=== PATIENT | male | born 1995 | race Caucasian/White ===

== ENCOUNTER 2017-01-04 20:26 | Emergency (ER) | payer MEDICAID ==
[2017-01-04 20:36] VITALS: TEMP 98.1
--- NOTE | 2017-01-04 21:19 | CPEKG ---
Heart Rate: 68 RR Interval: 882 P-R Interval: 152 QRSD Interval: 94 QT Interval: 388 QTC Interval: 413 P [place]: 56 QRS [place]: 85 T Wave [place]: 53 EKG Severity - NORMAL ECG - EKG Impression: SINUS RHYTHM Electronically Signed By: Neftaly Short 06-Jan-2017 11:55:21
--- NOTE | 2017-01-04 21:32 | EDPHY ---
H & P Stated Complaint: syncopal fall 18:30 Time Seen by Provider: 01/04/17 21:22 HPI/ROS: CHIEF COMPLAINT: Syncope HISTORY OF PRESENT ILLNESS: This is a 21-year-old male presenting to the emergency department after passing out hitting his head. Patient states he has a history of syncopal episodes which started 6 years ago after a 20 foot fall and concussion. Patient states this episode was a little bit different he was not feeling good after eating dinner, went to stand up and then passed out hitting his head on carpet. Brother stated it seem like he did have a seizure but was not quite sure, syncope episode lasted less than 30 seconds per brother. Patient states his last episode of syncope was 1-2 years ago seen in [place], unknown etiology. Patient states he still feels a little foggy and dizzy at this time, no nausea vomiting shortness of breath or chest pain REVIEW OF SYSTEMS: Constitutional: No fever, no chills. Malaise Eyes: No visual changes. ENT: No sore throat Respiratory: No cough, no shortness of breath. Cardiac: No chest pain. Gastrointestinal: Genitourinary: No hematuria. Musculoskeletal: No back pain. Skin: No rashes. Neurological: No headache. Source: Patient, Family - Personal History Current Tetanus/Diphtheria Vaccine: Yes - Medical/Surgical History Hx Asthma: Yes Hx Chronic Respiratory Disease: No Hx Diabetes: No Hx Cardiac Disease: No Hx Renal Disease: No Hx Cirrhosis: No Hx Alcoholism: No Hx HIV/AIDS: No Hx Splenectomy or Spleen Trauma: No Other PMH: PSHx: urethral approx 2010. PMHx: frequent syncope, exercise induced asthma - Social History Smoking Status: Current every day smoker - Physical Exam Exam: General Appearance: Alert, no distress. Eyes: Pupils equal and round no pallor or injection. ENT, Mouth: Mucous membranes moist. Respiratory: There are no retractions, lungs are clear to auscultation. Cardiovascular: Regular rate and rhythm. Gastrointestinal: Abdomen is soft and nontender, no masses, bowel sounds normal. Neurological: No focal deficits. Ambulatory to room without difficulty Skin: Warm and dry, no rashes. Musculoskeletal: Cervical spine vertebral tenderness on palpation C-collar placed. Occipital tenderness no hematoma noted Extremities: symmetrical, full range of motion. Psychiatric: Patient is oriented X 3, there is no agitation. Acting appropriate Constitutional: Initial Vital Signs Temperature (C) 36.7 C 01/04/17 20:32 Heart Rate 75 01/04/17 20:32 Respiratory Rate 14 01/04/17 20:32 Blood Pressure 139/67 H 01/04/17 20:32 O2 Sat (%) 95 01/04/17 20:32 O2 Delivery Mode Room Air Allergies/Adverse Reactions: No Known Allergies Allergy (Unverified 01/04/17 20:32) Home Medications: Medication Instructions Recorded NK [No Known Home Meds] 01/04/17 Medical Decision Making - Diagnostics Imaging Results: Imaging Impressions Cervical Spine CT 01/04/17 21:32 Impression: 1. No significant intracranial abnormality seen. 2. Normal CT cervical spine. Findings discussed with Dalia Roche NP at 22:18 hour, 01/04/2017. Head CT 01/04/17 21:32 Impression: 1. No significant intracranial abnormality seen. 2. Normal CT cervical spine. Findings discussed with Dalia Roche NP at 22:18 hour, 01/04/2017. Imaging: I viewed and interpreted images myself (spoke with Radiologist) ED Course/Re-evaluation: Discussed the plan of care: CT head, CT cervical spine, , CBC Chem 7 2230: Discussed negative CT findings, negative lab results, EKG no acute findings. C-collar removed 2300: Discussed discharge instructions with patient. Since you live in [facility] and has been seen through [facility] for primary care. Follow up with Neurology and Cardiology for further evaluation of her syncopal episodes Differential Diagnosis: Differential diagnosis considered but not limited to SAH, seizure and orthostatic hypotension - Data Points Laboratory Results: Laboratory Results 01/04/17 21:48 01/04/17 21:48 01/04/17 01/04/17 21:48 21:48 WBC 4.95 10^3/uL 10^3/uL (3.80-9.50) RBC 5.19 10^6/uL 10^6/uL (4.40-6.38) Hgb 15.2 g/dL g/dL (13.7-17.5) Hct 43.1 % % (40.0-51.0) MCV 83.0 fL fL (81.5-99.8) MCH 29.3 pg pg (27.9-34.1) MCHC 35.3 g/dL g/dL (32.4-36.7) RDW 11.9 % % (11.5-15.2) Plt Count 218 10^3/uL 10^3/uL (150-400) MPV 10.4 fL fL (8.7-11.7) Neut % (Auto) 55.0 % % (39.3-74.2) Lymph % (Auto) 30.9 % % (15.0-45.0) [place] % (Auto) 9.5 % % (4.5-13.0) Eos % (Auto) 3.6 % % (0.6-7.6) Baso % (Auto) 0.8 % % (0.3-1.7) Nucleat RBC Rel Count 0.0 % % (0.0-0.2) Absolute Neuts (auto) 2.72 10^3/uL 10^3/uL (1.70-6.50) Absolute Lymphs (auto) 1.53 10^3/uL 10^3/uL (1.00-3.00) Absolute Monos (auto) 0.47 10^3/uL 10^3/uL (0.30-0.80) Absolute Eos (auto) 0.18 10^3/uL 10^3/uL (0.03-0.40) Absolute Basos (auto) 0.04 10^3/uL 10^3/uL (0.02-0.10) Absolute Nucleated RBC 0.00 10^3/uL 10^3/uL (0-0.01) Immature Gran % 0.2 % % (0.0-1.1) Immature Gran # 0.01 10^3/uL 10^3/uL (0.00-0.10) Sodium 138 mEq/L mEq/L (134-144) Potassium 4.7 mEq/L mEq/L (3.5-5.2) Chloride 105 mEq/L mEq/L (97-110) Carbon Dioxide 24 mEq/l mEq/l (22-31) Anion Gap 9 mEq/L mEq/L (8-16) BUN 20 mg/dL mg/dL (7-23) Creatinine 0.9 mg/dL mg/dL (0.7-1.3) Estimated GFR > 60 Glucose 84 mg/dL mg/dL (70-100) Calcium 9.9 mg/dL mg/dL (8.5-10.4) Medications Given: Discontinued Medications Acetaminophen (Tylenol) 1,000 mg PO EDNOW ONE Stop: 01/04/17 23:24 Last Admin: 01/04/17 23:27 Dose: 1,000 mg Departure - Departure Disposition: Home, Routine, Self-Care Clinical Impression: Syncope Qualifiers: Syncope type: unspecified Qualified Code(s): R55 - Syncope and collapse Condition: Good Instructions: Syncope (ED), Lightheadedness (ED) Additional Instructions: Discussed discharge instructions 1. As we discussed I would recommend following up with [facility] since you have been seen with the [facility] 2. Follow up with Neurology and Cardiology for further evaluation for the syncopal episodes your having 3. If at any point time you feel your symptoms have worsened chest pain shortness of breath any seizure activity return to the emergency department 4. Your CT scan of your head and cervical spine are negative for any acute findings Referrals: NONE *PRIMARY CARE P,. [Primary Care Provider] - As per Instructions [facility],. [Clinic] - As per Instructions
[2017-01-04 22:03] LABS: % IMMATURE GRANULYOCYTES 0.2 % (0.0-1.1); ABSOLUTE IMMATURE GRANULOCYTES 0.01 10^3/uL (0.00-0.10); ADD DIFF? NO; ADD MORPH? NO; ADD SCAN? NO; ATYPICAL LYMPHOCYTE FLAG 10 (0-99); FRAGMENT RBC FLAG 0 (0-99); HEMATOCRIT 43.1 % (40.0-51.0); HEMOGLOBIN 15.2 g/dL (13.7-17.5); LEFT SHIFT FLG 0 (0-99); LIPEMIA HEMOLYSIS FLAG 90 (0-99); MEAN CELL HEMOGLOBIN 29.3 pg (27.9-34.1); MEAN CELL HEMOGLOBIN CONCENTR. 35.3 g/dL (32.4-36.7); MEAN PLATELET VOLUME 10.4 fL (8.7-11.7); PLATELET CLUMPS FLAG 10 (0-99); PLATELET COUNT 218 10^3/uL (150-400); RED BLOOD CELL COUNT 5.19 10^6/uL (4.40-6.38); RED CELL DISTRIBUTION WIDTH 11.9 % (11.5-15.2)
[2017-01-04 22:19] LABS: ANION GAP 9 mEq/L (8-16); CALCIUM 9.9 mg/dL (8.5-10.4); CARBON DIOXIDE 24 mEq/l (22-31); CHLORIDE 105 mEq/L (97-110); CREATININE 0.9 mg/dL (0.7-1.3); GLOMERULAR FILTRATION RATE > 60; GLUCOSE 84 mg/dL (70-100); POTASSIUM 4.7 mEq/L (3.5-5.2); SODIUM 138 mEq/L (134-144)
[2017-01-04 22:57] VITALS: RESP 16
[2017-01-04] MEDS ORDERED: ACETAMINOPHEN 500 MG TAB PO ONE (23:23)
[2017-01-04 23:29] VITALS: BP 120/69; PULSE 77; O2SAT 96
== END 2017-01-04 23:27 | disposition home or self-care (01) ==
DX: R55 Syncope and collapse (principal); J45.909 Unspecified asthma, uncomplicated; F17.200 Nicotine dependence, unspecified, uncomplicated
CPT/HCPCS: L0120

== ENCOUNTER → 2017-01-20 | Outpatient (CLI) | payer MEDICAID ==
--- NOTE | 2017-01-20 18:56 | CPEEG ---
[f rep st] ELECTROENCEPHALOGRAM DATE OF STUDY: 01/20/2017 INTERPRETATION: Normal EEG during wakefulness and sleep. There were no potentially epileptogenic a bnormalities present during the recording. REPORT: This EEG contains 10 Hz alpha activity to the posterior head regions. The background activ ity was normal and symmetric. There was no abnormal activation at rest, during photic stimulation, or hyperventilation. The patient became drowsy and fell asleep during the study. There was no abno rmal activation during drowsiness, sleep, or during times of arousal. /[id number]/MODL
== END ==
LOC: FCPNEURO 12:56
PROVIDERS: ATTEND Internal Medicine
DX: R55 Syncope and collapse (principal)

== ENCOUNTER → 2017-01-29 | Outpatient (CLI) | payer MEDICAID | LOC: FIMAGING 09:20 | PROVIDERS: ATTEND Internal Medicine | DX: R55 Syncope and collapse (principal) ==

== ENCOUNTER 2017-02-18 09:07 | Day surgery (SDC) | payer MEDICAID ==
[2017-02-18] MEDS ORDERED: LIDOCAINE 1% *Not for Epidural 20 ML MDV NB ONE (09:30)
[2017-02-18] MEDS ORDERED: LIDOCAINE 1% 300 MG/30 ML SDV ONE (10:08)
--- NOTE | 2017-02-18 13:14 | EPPROC ---
Electrophysiology Procedure Note: Procedure: LINQ implant Indication: Syncope of unknown etiology Procedure: parts prepared and draped. LA given. Incision placed. LINQ implanted using usual technique. Dry sterile dressing placed. Conclusion: Successful LINQ implant
== END 2017-02-18 10:54 | disposition home or self-care (01) ==
LOC: FCATH 09:07
PROVIDERS: ATTEND Internal Medicine Cardiovascular Disease
PROC: 0JH60PZ Insertion of Cardiac Rhythm Related Device into Chest Subcutaneous Tissue and Fascia, Open Approach (ICD-10-PCS; principal; 2017-02-18)
DX: R55 Syncope and collapse (principal)
CPT/HCPCS: C1764

== ENCOUNTER 2018-03-14 23:02 | Inpatient (IN) | payer MEDICAID ==
[2018-03-14] MEDS ORDERED: NS 1,000 ML IV SCH (23:45)
[2018-03-14] MEDS ORDERED: ONDANSETRON 4 MG/2 ML VIAL IVP PRN (23:53)
[2018-03-14] MEDS ORDERED: ACETAMINOPHEN 325 MG TAB PO PRN (23:53)
--- NOTE | 2018-03-15 01:29 | PDGENHP ---
History and Physical - Chief Complaint Syncope - History of Present Illness Source-patient provides history appears reliable. Patient's mother who was present for his syncopal episode on Wednesday was also present and supplement details and family history details. EMR was reviewed and case discussed with accepting hospitalist provider. HPI - this is a pleasant 22-year-old gentleman with a past medical history significant for intermittent episodes of syncope. He is having been ongoing off and on for the past several years. Patient is followed closely by Dr. Rei Ring. Patient underwent LINQ recorder placement in 02/2017. It was reported that patient has had is some documentation of episodes of SVT, bradycardia and most recently this past week and had a 12 sec pause. These episodes were both associated with syncopal episodes. Patient had been camping over the weekend he and he was standing in line for dinner with his family when he started to feel lightheaded and blacked out. Patient's mother reports that he turned sue and pale and fell to the ground. He also had loss of urinary control. There was no reported tonic clonic activity. Patient's mother reports that this past episode seemed that he had a little bit of prolonged recovery phase as he was still quite fatigued and his overall color took a while to return to normal. Patient otherwise denies any chest pain, palpitations, shortness of breath. No recent illnesses. He denies any PND, orthopnea or lower extremity edema. When patient returned on to town from camping he uploaded his r recorder and was called back by Cardiology noting a significant pause and recommended patient go emergently to the ER. In the emergency department patient was noted to have had a 6 sec pause but no report of syncopal episode. Currently on the PCU floor patient reports that he is feeling well. Denies any lightheadedness, chest pain, shortness of breath. History Information - Allergies/Home Medication List Allergies/Adverse Reactions: No Known Allergies Allergy (Unverified 01/04/17 20:32) Home Medications: NK [No Known Home Meds] 01/04/17 [Last Taken Unknown] I have personally reviewed and updated: family history, medical history, social history, surgical history - Past Medical History Additional medical history: Syncope, exercise-induced asthma, anxiety, depression, history of ureteral stricture status post repair, history negative stress test. PTSD. Two thousand eleven patient with a fall off of [facility] approximately 45 ft with concussion and liver lac. - Surgical History Additional surgical history: Loop recorder, ureteral stricture repair - Social History Smoking Status: Current every day smoker Tobacco Use: Cigarettes (Patient smokes 1 pack per day) Alcohol Use: Rarely Drug Use: Marijuana (Daily use) Additional social history: Patient works in construction. Cor status-full. Review of Systems Review of Systems: ROS: 10pt was reviewed & negative except for what was stated in HPI & below Physical Exam Physical Exam: Selected Entries 03/14/18 23:17 Heart Rate 62 Respiratory 14 Rate O2 Sat (%) 96 Temperature (C) 36.3 C Blood Pressure 130/58 H Mean Arterial 82 Pressure (MAP) Activity During At Rest Vital Signs O2 Delivery Room Air Mode Blood Pressure Left Source Upper Arm Temperature Oral Source Temp Pulse Resp BP Pulse Ox 36.3 C 62 14 130/58 H 96 03/14/18 23:17 03/14/18 23:17 03/14/18 23:17 03/14/18 23:17 03/14/18 23:17 Constitutional: no apparent distress, appears nourished, other (NAD. Pleasant adult young male resting quietly in bed. Mother at bedside.) Eyes: PERRL, anicteric sclera, EOMI, No scleral injection Ears, Nose, Mouth, Throat: moist mucous membranes, other (No nasal discharge.), No poor dentition Cardiovascular: regular rate and rhythym, no murmur, rub, or gallop, pulses symmetric bilaterally, No edema Peripheral Pulses: 2+: dorsalis-pedis (R), dorsalis-pedis (L) Respiratory: no respiratory distress, no rales or rhonchi, clear to auscultation , No expiratory wheeze, No inspiratory crackles, No respiratory distress Gastrointestinal: normoactive bowel sounds, soft, non-tender abdomen, no palpable masses, No distension Genitourinary: no bladder tenderness, No stubbs in urethra Skin: warm, normal color, no rashes or abrasions Musculoskeletal: full muscle strength, other (Patient moves all extremities. Sits up independently.), No generalized weakness Neurologic: AAOx3, sensation intact bilaterally, other (Nonfocal exam.), No facial droop Psychiatric: interacting appropriately, not anxious, not encephalopathic, thought process linear, No poor insight, No poor judgement, No poor memory Lab Data & Imaging Review 03/14/2018 Laboratory studies from [facility] WBC 6.1, H&H 15.3 and 44, platelet 207, MCV of 84 Sodium 143, potassium 4.2, chloride 108, CO2 23, BUN 16, creatinine 0.8, glucose 87 Troponin negative EKG reviewed myself from [facility] 03/14/2018- NSR in the 60s. There is less than [address] elevation in inferior leads likely report changes. Right axis deviation present. No other acute ST changes. QTC of 394. Telemetry strips reviewed showing occasional P wave inversion in various leads as well as occasional superimposed P-waves within the T-wave. Occasional T- wave inversion. With patient being asymptomatic. 03/14/2018 Chest x-ray report reviewed. Negative for any acute findings. Unable to upload image on available equipment for review. Disc is attached to patient's chart. Visualized and Interpreted EKG results: Yes Assessment & Plan Assessment: Assessment plan 22-year-old gentleman with history recurrent episodes of syncope status post loop recorder now presents as direct admission for noted episodes of bradycardia and pauses. 1. Syncope - patient has had several episodes of pauses which are generally associated with his episodes of syncope. Cardiology was consulted from the emergency department in [place] with recommendations for patient to be admitted for further evaluation and consideration of a pacer. Patient is followed closely by Dr. Rei Ring and they were called prior to patient's transfer. Anticipate they will evaluate the patient in the morning and so will make him NPO. Patient currently normal sinus rhythm on telemetry. chronic medical issues Anxiety depression - patient is not currently on any medications. Mood affect appears appropriate. History concussion History of PTSD History exercise-induced asthma - albuterol will be made available p.r.n.. Tobacco abuse - cessation will be counseled before discharge. Nicotine patch p.r.n. For withdrawal symptoms. FEN - patient will be made NPO pending Cardiology of assessment in the morning. Electrolyte monitoring replacement if needed. PPX-SCDs. Holding anticoagulation pending Cardiology evaluation recommendations. Low risk for DVT. Cor status-full Disposition-patient has been admitted inpatient status on PCU floor given significance of correlation with patient's bradycardia and pausing. Anticipate greater than 2 midnight stay pending further Cardiology recommendations.
[2018-03-15] MEDS ORDERED: ALBUTEROL 3 ML DEYVIAL IH PRN ×2 (01:45→15:45)
[2018-03-15 04:40] LABS: PLATELET COUNT 188 10^3/uL (150-400)
--- NOTE | 2018-03-15 09:08 | PDMN ---
Medical Necessity Medical necessity: Pt meets IP criteria per MD & MCG [id number]; est los >2 mn for eval/tx of recurrent episodes of syncope s/p loop recorder w/episodes of bradycardia & pauses; requiring cardiac monitoring & Cardiology consult w/ possible pacer placement; per H&P & order 03/14/18
--- NOTE | 2018-03-15 13:20 | GCON ---
[f rep st] CONSULTATION CARDIOLOGY CONSULTATION DATE OF CONSULTATION: 03/15/2018 REASON FOR CONSULTATION: Syncope. HISTORY OF PRESENT ILLNESS: The patient is a pleasant 22-year-old gentleman who is known to [facility], who is followed closely by Dr. Rei Ring for a known history of syncope for approximately t he last 5-6 years. He presents to [facility] after a syncopal episode that occurred over the weekend. He does have an implantable loop recorder in place that was inserted in January of 2017 in the setting of ongoing workup for syncope. This past weekend, he states he was in his usual state of health. He was out camping with his girlfr iend and parents. He states he was standing in line for some food when he had a brief prodrome of ap proximately 1 minute of what he described as "closing in of his vision," lightheadedness that ultimat tom resulted in a loss of consciousness. This was witnessed by his father who states he was unconsci ous on the ground for approximately 15 seconds. He was incontinent to urine. He appeared pale and d iaphoretic. He states that when he awoke, that he was able to sit up in a chair and within 20 minute s felt back to baseline. When he returned home, he was able to do a remote download of his loop mukund rder, which demonstrated a 12-13 second pause that was preceded by bradycardia. He was instructed to present to a local hospital for further evaluation. He was seen in [place] and ultimately came to [facility] for further evaluation since this is where all of his workup had been done to date. Regarding his history of syncope, he states he has had syncopal events for approximately the last 5-6 years. These events occur several times a year. To me, he described these events as occurring prim arily without prodrome. He describes feeling well followed by a sudden loss of consciousness and the n waking up and feeling back to baseline within minutes. In reviewing his notes from Dr. Harmony del castillo last year as well as notes from Dr. Rei Ring, he frequently describes prodromal symptoms that a re more suggestive of a vasovagal mediated syncope. He has undergone extensive workup including a normal exercise treadmill stress test in January of 2017 wi th Jack Treadmill Score of 12, placing him at low cardiac risk. He did undergo complete 2D echocardiogram in January 2017, demonstrating normal left ventricular size and function with no evidence of LVH. No significant valvular abnormalities. Currently, at the time of my exam, he is resting comfortably without complaint. Telemetry demonstrat es sinus rhythm. There is an occasionally nonconducted premature atrial contraction with no signific ant pauses. PAST MEDICAL HISTORY: Notable for depression and exercise-induced asthma. MEDICATIONS: On admission are albuterol inhaler 1-2 puffs p.r.n. SOCIAL HISTORY: He is single. He does have a girlfriend. He has been a 1 pack-a-day smoker for the last 3 years. 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 Occasional alcohol. FAMILY HISTORY: No family history of premature coronary artery disease. No family history of arrhyt hmias and no known family history of pacemakers. PAST MEDICAL HISTORY: Notable for traumatic liver laceration after a fall from approximately 20 feet . EXAMINATION: VITALS: Blood pressure of 115/79, heart rate of 68, oxygen saturation 97% on room air, temperature 37.1. GENERAL: He is awake, alert, oriented, appropriate. No apparent distress. NECK : There is no evidence of JVP or carotid bruits. LUNGS: Clear to auscultation bilaterally. CARDIA C: S1, S2. Regular rate and rhythm. No murmurs, rubs, or gallops. PMI is not displaced. ABDOMEN: Soft, nontender, nondistended. There is no pulsatile mass or abdominal bruit. EXTREMITIES: He tomlinson s no evidence of cyanosis, clubbing or edema. DATA: Telemetry demonstrates sinus rhythm with an occasional nonconducted premature atrial contracti on. LABORATORY DATA: White blood cell count 5.37, hemoglobin of 13.9, hematocrit of 41.1, platelets 188. Sodium 139, potassium 4.4, chloride 110, bicarb 21, BUN 15, creatinine 0.7, glucose 80. IMPRESSION: 1. Syncope. 2. Sinus arrest with a 12-13 second pause detected on [employer] implantable loop recorder associated with syncope. IMPRESSION: The patient was a pleasant 22-year-old young man with known history of syncope over the last 5-6 years with episodes that are frequently non prodromal per his report today. His event over the weekend did have 1 minute prodrome. In reviewing records, he does have episodes that he describe s to both Dr. Ring and Dr. Antunez of neurology of prodrome suggestive of vasovagal syncope. In the setting of syncope with prolonged pause of 12-13 seconds and history of non prodromal events, I think that consideration and recommendation for pacemaker is warranted. Would recommend an atrial and ventricular lead. I have discussed risks and benefits for the procedure with the patient. I have recommended he be seen by Dr. Short for pacemaker implantation. PLAN: 1. Dual chamber pacemaker implantation. 2. Risks and benefits discussed. 3. Dr. Short will discuss details of pacemaker implantation with the patient as well. /[id number]/MODL
[2018-03-15] MEDS ORDERED: ceFAZolin 2 GM/DEXTROSE 100 ML IV ONE (13:23)
[2018-03-15] MEDS ORDERED: BACITRACIN IRRIGATION/NS 50,000 UNITS/1,000 ML BTL IRR ONE (13:23)
[2018-03-15] MEDS: NICOTINE 21 MG/24 HR PATCH TD PRN (13:33)
--- NOTE | 2018-03-15 14:05 | ASMTCMCOM ---
CM Note CM Note Notes: Chart reviewed. Patient has history of heart rhythm disturbances. Admitted via ED with symptomatic syncope associated with bradycardia. He will have a PPM placed this afternoon. No anticipated needs at this time. CM available should needs arise. Plan:Likely home with no needs. Date Signed: 03/15/2018 02:05 PM Electronically Signed By:Akosua Payton RN
--- NOTE | 2018-03-15 14:23 | HOSPPROG ---
Hospitalist Progress Note Assessment/Plan: #Syncope: due to sinus arrest with 12-sec pause. Echo [address] Staples evaluated and plan for pace maker placement today #Exercise-induced asthma: albuterol #Tobacco abuse: nicotine patch #anxiety/depression: not on meds #Diet: NPO #DVT ppx: low-risk, ambulatory Disp: pacer placement today Subjective: no dizziness this morning Objective: Vital Signs Temp Pulse Resp BP Pulse Ox 37.1 C 62 12 135/51 H 95 03/15/18 12:00 03/15/18 12:00 03/15/18 12:00 03/15/18 12:00 03/15/18 12:00 Laboratory Results 03/15/18 03:58 03/15/18 03:58 03/14/18 03/15/18 03/16/18 05:59 05:59 05:59 Intake Total 100 Balance 100 - Time Spent With Patient Time Spent with Patient: greater than 35 minutes Time Spent with Patient: Greater than 35 minutes spent on this patients care, greater than 50% of time spent counseling, educating, and coordinating care regarding the above mentioned plan. - Physical Exam Constitutional: no apparent distress Eyes: PERRL Ears, Nose, Mouth, Throat: moist mucous membranes Cardiovascular: bradycardia Respiratory: no respiratory distress Gastrointestinal: normoactive bowel sounds Genitourinary: no bladder fullness Skin: warm Musculoskeletal: full muscle strength Neurologic: AAOx3, CN II-XII Intact Psychiatric: interacting appropriately ICD10 Worksheet Patient Problems: Problems Problem Status Onset Sinus arrest Acute - ICD10 Problem Qualifiers (1) Sinus arrest
[2018-03-15 15:08] LABS: INR 0.93 (0.83-1.16); PROTIME(PATIENT) 12.7 SEC (12.0-15.0)
--- NOTE | 2018-03-15 15:10 | PDANEPAE ---
ANE History of Present Illness here for PM for sinus pause ANE Past Medical History - Cardiovascular History Hx Hypertension: No Hx Arrhythmias: Yes Hx Chest Pain: No Hx Coronary Artery / Peripheral Vascular Disease: No Hx CHF / Valvular Disease: No Hx Palpitations: No - Pulmonary History Hx COPD: No Hx Asthma/Reactive Airway Disease: Yes Hx Recent Upper Respiratory Infection: No Hx Oxygen in Use at Home: No Hx Sleep Apnea: No - Endocrine History Hx Diabetes: No Hypothyroid: No Hyperthyroid: No Obesity: no - Renal History Hx Renal Disorders: No - Liver History Hx Hepatic Disorders: No - Neurological & Psychiatric Hx Hx Neurological and Psychiatric Disorders: No - Chronic Pain History Chronic Pain: Yes (Lower back pain) ANE Review of Systems Review of systems is: negative Review of Systems: - Exercise capacity Exercise capacity: >=4 METS ANE Patient History - Allergies Allergies/Adverse Reactions: No Known Allergies Allergy (Unverified 01/04/17 20:32) - Home Medications Home Medications: Albuterol [Proventil Inhaler HFA (*)] 1 - 2 puffs IH DAILY PRN 03/15/18 [Last Taken Unknown] - NPO status NPO Status: no food or drink >8 hours - Anes Hx Anes Hx: no prior problems - Smoking Hx Smoking Status: Current every day smoker - Alcohol Use Alcohol Use: Rarely ANE Labs/Vital Signs - Labs Result Diagrams: 03/15/18 03:58 03/15/18 03:58 - Vital Signs Blood Pressure: 135/51 Heart Rate: 62 Respiratory Rate: 12 O2 Sat (%): 95 Height: 180.34 cm Weight: 72.348 kg ANE Physical Exam - Airway Neck exam: FROM Mallampati Score: Class 1 Mouth exam: normal dental/mouth exam - Pulmonary Pulmonary: no respiratory distress - Cardiovascular Cardiovascular: regular rate and rhythym - ASA Status ASA Status: II ANE Anesthesia Plan Anesthesia Plan: GA with mask
[2018-03-15] MEDS ORDERED: LIDOCAINE 1% 300 MG/30 ML SDV ONE (15:22)
[2018-03-15] MEDS ORDERED: BUPIVACAINE 0.75% 10 ML SDV ONE (15:23)
[2018-03-15] MEDS ORDERED: IOPAMIDOL (ISOVUE-300) 100 ML BTL ONE (15:36)
--- NOTE | 2018-03-15 15:44 | PDGENHP ---
History & Physical Chief Complaint: Syncope, pause of 12 s Relevant Physical Exam: s1s2 rrr. cta. ao3 Cardiorespiratory Assessment: For permanent pacemaker
[2018-03-15] MEDS ORDERED: DEXAMETHASONE 4 MG/ML VIAL IVP PRN (15:45)
[2018-03-15] MEDS ORDERED: NALOXONE HCL 0.4 MG/ML INJ IVP PRN (15:45)
[2018-03-15] MEDS ORDERED: fentaNYL 100 MCG/2 ML INJ IVP PRN (15:45)
[2018-03-15] MEDS ORDERED: ONDANSETRON 4 MG/2 ML VIAL IVP PRN (15:45)
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
[2018-03-15] MEDS ORDERED: fentaNYL 100 MCG/2 ML INJ ONE (15:48)
[2018-03-15] MEDS ORDERED: MIDAZOLAM 2 MG/2 ML VIAL ONE (15:49)
[2018-03-15] MEDS ORDERED: PROPOFOL/EMULSION 500 MG/50 ML BOTTLE IV ONE ×3 (15:50→17:31)
[2018-03-15] MEDS ORDERED: PROPOFOL 200 MG/20 ML VIAL ONE ×3 (16:46→17:19)
--- NOTE | 2018-03-15 18:44 | CPEKG ---
Heart Rate: 64 RR Interval: 938 P-R Interval: 148 QRSD Interval: 88 QT Interval: 384 QTC Interval: 396 P Dryden: -9 QRS [place]den: 95 T Wave [place]: 55 EKG Severity - OTHERWISE NORMAL ECG - EKG Impression: SINUS RHYTHM EKG Impression: BORDERLINE RIGHT AXIS DEVIATION EKG Impression: ST ELEV, PROBABLE NORMAL EARLY REPOL PATTERN Electronically Signed By: Steven Brady 17-Mar-2018 16:17:28
[2018-03-15] MEDS ORDERED: HYDROCODONE/APAP 10/325 TAB PO PRN (22:45)
[2018-03-15] MEDS: HYDROCODONE/APAP 5/325 TAB PO PRN (23:11)
[2018-03-16] MEDS: HYDROCODONE/APAP 5/325 TAB PO PRN ×3 (00:13→13:25)
[2018-03-16 04:14] LABS: PLATELET COUNT 200 10^3/uL (150-400)
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
--- NOTE | 2018-03-16 08:59 | CPEKG ---
Heart Rate: 65 RR Interval: 923 P-R Interval: 160 QRSD Interval: 92 QT Interval: 392 QTC Interval: 408 QRS [place]: 89 T Wave [place]: 32 EKG Severity - ABNORMAL ECG - EKG Impression: ATRIAL-PACED RHYTHM Electronically Signed By: Steven Brady 17-Mar-2018 16:17:06
[2018-03-16] MEDS: NICOTINE 21 MG/24 HR PATCH TD PRN (10:26)
[2018-03-16 11:22] VITALS: BP 131/67
--- NOTE | 2018-03-16 12:28 | PDCARPN ---
Cardiology Progress Note Chief Complaint: Syncope Assessment/Plan: Assessment: 1. Syncope 2. pause of 12 seconds associated with syncope Plan: -follow up in 7-10 days for wound and pacer check -Follow up with Dr. Ring in 4 weeks -Pain Management: Tramadol 50 mg q 6hrs prn pain. #10 03/16/18 12:26 Subjective: Flaco underwent successful Dual Chamber biotronik pacer yesterday. Site looks good. No hematoma or ecchymosis. Pacer check today demonstrates normal device function. CXR without pneumothorax. He does complain of some tenderness at the site. Reviewed/Discussed With: multidisciplinary team Objective: Vital Signs (8 Hrs) Temp Pulse Resp BP Pulse Ox 03/16/18 11:21 36.4 C 69 16 131/67 H 96 03/16/18 07:38 36.5 C 66 12 126/73 H 98 Intake/Output (24 Hrs) 03/15/18 03/16/18 03/17/18 05:59 05:59 05:59 Intake Total 100 1550 Output Total 500 Balance 100 1050 Intake: Oral (ml) 100 650 IV Intake (ml) 900 Output: Urine (ml) 500 Urinal 500 Other: Weight 72.3 kg 72.348 kg Number of Voids Toilet 2 Urinal 1 Result Diagrams: 03/16/18 03:59 03/16/18 03:39 - Physical Exam Constitutional: WDWN ICD10 Worksheet Patient Problems: Problems Problem Status Onset Sinus arrest Acute
--- NOTE | 2018-03-16 13:29 | PDDCSUM ---
Discharge Summary Discharge Summary: HPI/Hospital course 22 yo male with syncope and sinus arrest now s/p pace maker placement. Please see below for details. -follow up in 7-10 days for wound and pacer check -Follow up with Dr. Ring in 4 weeks -Pain Management: Tramadol 50 mg q 6hrs prn pain. #10 Discharge diagnosis #Syncope: due to sinus arrest with 12-sec pause. Echo [address] Staples evaluated and placed pace maker #Exercise-induced asthma: albuterol #Tobacco abuse: nicotine patch #anxiety/depression: not on meds Exam: NAD AAOX3 RRR CTA B S/NT/ND NO LE EDEMA MEDS: SEE MED REC F/U: PER ABOVE TOTAL TIME SPENT ON D/C IS 35 MIN
--- NOTE | 2018-03-16 13:49 | ASMTDCNOTE ---
Case Management Discharge Discharge Order Complete? Answers: Yes Patient to Obtain Answers: via Family Medications Transportation Arranged Answers: Family/Friends EMTALA Complete Answers: No Case Management Transport Answers: No Form Complete Faxed Final Orders Answers: No Agency/Facility Transfer Answers: No Report Printed & Faxed to Receiving Agency Family Notified Answers: Yes Discharge Comments Notes: Pts case discussed in tx rounds. Pt is being discharged today. No CM needs at this time. Pts family was curious about how this hospitalization will be covered by pts Medicaid. CM provided family w/ phone number to [facility] financial counseling. CM available for changes. Plan: Independent Date Signed: 03/16/2018 01:49 PM Electronically Signed By:ERICA Whelan
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
--- NOTE | 2018-03-28 18:39 | GPROG ---
[f rep st] PROGRESS NOTE POSTANESTHESIA CARE NOTE This patient underwent a pacemaker placement with Dr. Short. The patient was taken to the PACU in stab le condition. The patient's pain and nausea were adequately controlled. There were no apparent comp lications from this anesthetic. /[id number]/MODL
== END 2018-03-16 15:08 | disposition home or self-care (01) | DRG 171 ==
LOC: F2W 23:02
PROVIDERS: ADMIT Internal Medicine; ATTEND Internal Medicine
PROC: 02H63JZ Insertion of Pacemaker Lead into Right Atrium, Percutaneous Approach (ICD-10-PCS; principal; 2018-03-15)
PROC: 02HK3JZ Insertion of Pacemaker Lead into Right Ventricle, Percutaneous Approach (ICD-10-PCS; principal; 2018-03-15)
PROC: 0JPT0PZ Removal of Cardiac Rhythm Related Device from Trunk Subcutaneous Tissue and Fascia, Open Approach (ICD-10-PCS; principal; 2018-03-15)
PROC: 0JH606Z Insertion of Pacemaker, Dual Chamber into Chest Subcutaneous Tissue and Fascia, Open Approach (ICD-10-PCS; principal; 2018-03-15)
DX: I45.5 Other specified heart block (principal); F12.90 Cannabis use, unspecified, uncomplicated; J45.998 Other asthma; F41.8 Other specified anxiety disorders; F43.10 Post-traumatic stress disorder, unspecified; Z72.0 Tobacco use
CPT/HCPCS: C1785; C1898; J0690; J2250; J2270; J2704; J3010; J7613; Q9967